=== PATIENT | female | born 1960 | race African-American/Black ===

== ENCOUNTER 2017-04-02 16:57 | Emergency (ER) | payer SELFPAY ==
[2017-04-02 17:28] LABS: Hematocrit 47.3 % (36.0-47.0); Mean Platelet Volume 8.3 fL (7.4-10.4); Red Blood Cell (RBC) Count 5.21 mill/uL (4.20-5.40); White Blood Cell (WBC) Count 8.9 thou/uL (4.8-10.8)
[2017-04-02 17:44] LABS: ALT (SGPT) 9 U/L (8-55); AST (SGOT) 15 U/L (5-34); Alkaline Phosphatase 107 U/L (40-150); Anion Gap 14 mmol/L (10-20); BUN (Urea Nitrogen) 29 mg/dL (9.8-20.1); Bilirubin, Total 0.2 mg/dL (0.2-1.2); CK (CPK) 107 U/L (29-168); Calc. Creatinine Clearance 0 mL/min (70-130); Calcium 8.8 mg/dL (7.8-10.44); Carbon Dioxide 24 mmol/L (22-29); Chloride 106 mmol/L (98-107); Estimated GFR-MDRD 52; Globulin 3.2 g/dL (2.4-3.5); Protein, Total 6.7 g/dL (6.0-8.3)
[2017-04-02 17:47] LABS: Band 1 % (5-11); Neutrophil 67 % (42-75)
[2017-04-02 17:49] LABS: Troponin I 0.016 ng/mL (< 0.028)
--- NOTE | 2017-04-02 18:15 | RAD ---
EXAM: ONE VIEW CHEST TWO VIEWS ABDOMEN 04/02/17 HISTORY: Constipation and chest pain. COMPARISON: One view chest, 11/20/14. FINDINGS: One view chest: Enlarged cardiac silhouette. Pulmonary vessels and hilum are normal. Costophrenic angles are clear. No mass. No consolidation. No pneumo thorax or osseous abnormalities. ABDOMEN TWO VIEWS: Nonspecific bowel gas pattern. No evidence of bowel distention or dilatation. Scattered fecal materi al in a nondistended, nondilated colon. Cholecystectomy clip in the right upper quadrant are identif ied. No pneumoperitoneum on the upright projection. No differential air fluid levels. No significant densities in the abdomen or pelvis. IMPRESSION: 1. Cardiomegaly. No evidence of congestive heart failure. 2. Nonspecific bowel gas pattern. POS: [facility]
== END 2017-04-02 18:38 | disposition left against medical advice (07) ==
LOC: ERS 16:57
DX: R07.9 Chest pain, unspecified (principal)
CPT/HCPCS: 36415; 74022; 80053; 82553; 84484; 85025; 93005

== ENCOUNTER 2019-06-12 16:14 | Emergency (ER) | payer SELFPAY ==
[2019-06-12] MEDS ORDERED: Acetaminophen 500 MG TAB ONE (18:31)
== END 2019-06-12 19:18 | disposition home or self-care (01) ==
LOC: ERS 16:14
DX: J11.1 Influenza due to unidentified influenza virus with other respiratory manifestations (principal); I10 Essential (primary) hypertension; F32.9 Major depressive disorder, single episode, unspecified; F17.210 Nicotine dependence, cigarettes, uncomplicated; Z79.899 Other long term (current) drug therapy
CPT/HCPCS: 87804; 99406

== ENCOUNTER 2022-12-13 21:21 | Emergency (ER) | payer SELFPAY ==
[2022-12-13] MEDS ORDERED: Ketorolac Tromethamine 30 MG/ML VIAL ONE (21:35)
[2022-12-13] MEDS ORDERED: Lidocaine 2% PF 5 ML VIAL ONE (21:51)
== END 2022-12-13 22:51 | disposition home or self-care (01) ==
LOC: ERS 21:21
DX: S52.122A Displaced fracture of head of left radius, initial encounter for closed fracture (principal); S52.612A Displaced fracture of left ulna styloid process, initial encounter for closed fracture; E78.00 Pure hypercholesterolemia, unspecified; I13.0 Hypertensive heart and chronic kidney disease with heart failure and stage 1 through stage 4 chronic kidney disease, or unspecified chronic kidney disease; N18.30 Chronic kidney disease, stage 3 unspecified; I50.9 Heart failure, unspecified; F17.210 Nicotine dependence, cigarettes, uncomplicated; W21.05XA Struck by basketball, initial encounter; Y93.67 Activity, basketball; Z79.01 Long term (current) use of anticoagulants
CPT/HCPCS: 29125; 96374; J1885; J2001

== ENCOUNTER 2024-03-28 10:39 | Outpatient (CLI) | payer OTHER | END 2024-03-28 10:40 | disposition home or self-care (01) | LOC: BICMAMMO 10:39 | PROVIDERS: ATTEND Nurse Practitioner Family | DX: Z12.31 Encounter for screening mammogram for malignant neoplasm of breast (principal); N63.20 Unspecified lump in the left breast, unspecified quadrant | CPT/HCPCS: 77063; 77067 ==

== ENCOUNTER 2024-04-13 09:35 | Outpatient (CLI) | payer OTHER | END 2024-04-13 09:36 | disposition home or self-care (01) | LOC: BICMAMMO 09:35 | PROVIDERS: ATTEND Nurse Practitioner Family | DX: N63.25 Unspecified lump in the left breast, overlapping quadrants (principal) | CPT/HCPCS: G0279 ==